=== PATIENT | male | born 1940 | race African-American/Black ===

== ENCOUNTER 2016-12-03 19:00 | Emergency (ER) | payer MEDICARE ==
--- NOTE | 2016-12-03 20:47 | Cat Scan Report ---
FINAL REPORT EXAM: CT HEAD/BRAIN WO CON HISTORY: neuro deficits \T\lt; 6hrs or sx present upon awakening TECHNIQUE: Noncontrast serial axial images from skull base to vertex PRIORS: None. FINDINGS: There is moderate atrophy. There is no mass effect or midline shift. There are no abnormal intra or extra-axial fluid collections. Lateral ventricles are prominent, but this may be related to atrophy. Basilar cisterns are patent. No acute intracranial hemorrhage is identified. Areas of relative hypodensity are seen in the white matter of the cerebral hemispheres. Atherosclerotic changes are noted. There is mucosal thickening and the left maxillary sinus and scattered ethmoidal air cells. Mastoid air cells are well aerated. No acute osseous abnormality is identified. IMPRESSION: 1. No abnormal mass or acute intracranial hemorrhage is identified. 2. Areas of relative hypodensity are seen in the white matter of the cerebral hemispheres. This is a nonspecific finding. It may be related to chronic ischemic change from small vessel disease. 3. If there is concern for acute infarct, the patient can be further assessed with MRI with diffusion-weighted imaging.
[2016-12-03 21:27] LABS: Basophils % (Auto) 0.8 % (0.0-1.8); Eosinophils % (Auto) 6.4 % (0.0-4.3); Hematocrit 35.4 % (35.5-45.6); Mean Corpuscular HGB Conc 34 % (32-34); Mean Corpuscular Hemoglobin 30 pg (28-32); Mean Corpuscular Volume 88 fl (84-94); Platelet Count 215 K/mm3 (140-440); Red Blood Count 4.01 M/mm3 (3.65-5.03); Red Cell Distribution Width 14.5 % (13.2-15.2); White Blood Count 7.3 K/mm3 (4.5-11.0)
[2016-12-03 21:37] LABS: INR 0.96 (0.87-1.13); Partial Thromboplastin Time 36.4 Sec. (24.2-36.6)
--- NOTE | 2016-12-03 21:44 | Emergency Department Report ---
ED Neuro Deficit HPI - General Chief Complaint: Neuro Symptoms/Deficit Stated Complaint: FACIAL DROOP/POSS CVA Time Seen by Provider: 12/03/16 20:18 Source: patient, family Mode of arrival: Wheelchair Limitations: No Limitations - History of Present Illness Initial Comments: 76-year-old male presents to the emergency Department with family complaining of left-sided facial droop. Symptoms began yesterday and have progressively gotten worse. Patient states he is having difficulty closing his left eye. He denies pain. He denies numbness or weakness in his extremities. There are no other complaints. -: Gradual, days(s) (1) Location: left face Presenting Symptoms: Present: Facial Droop/Numbness History of same: No Place: home Severity: moderate Quality: weak Improves With: none Worsens With: none On Anticoagulants: No Context: gradual onset Associated Symptoms: denies other symptoms - Related Data Home Medications: Previous Rx's Medication Instructions Recorded Last Taken Type predniSONE [Deltasone] 3 tab PO QDAY #15 tablet 12/03/16 Unknown Rx Allergies/Adverse Reactions: Allergies Allergy/AdvReac Type Severity Reaction Status Date / Time No Known Allergies Allergy Unverified 12/03/16 19:24 ED Review of Systems ROS: Stated complaint: FACIAL DROOP/POSS CVA Other details as noted in HPI Comment: All other systems reviewed and negative Neurological: as per HPI, other (left facial droop) ED Past Medical Hx - Past Medical History Previous Medical History?: Yes Hx Hypertension: Yes Hx Renal Disease: Yes (CKD, not on dialysis) Additional medical history: Hyperkalemia, vitamin D deficiency - Surgical History Past Surgical History?: No - Family History Family history: no significant - Social History Smoking Status: Never Smoker Substance Use Type: Alcohol, Prescribed - Medications Home Medications: Home Medications Medication Instructions Recorded Confirmed Last Taken Type predniSONE [Deltasone] 3 tab PO QDAY #15 tablet 12/03/16 Unknown Rx ED Neuro Physical Exam - General Limitations: No Limitations General appearance: alert, in no apparent distress Suspected Stroke: No - Head Head exam: Present: atraumatic, normocephalic - Eye Eye exam: Present: PERRL, EOMI, conjunctival injection (left), other (Patient unable to close left eyelid) - ENT ENT exam: Present: normal exam, normal orophraynx, mucous membranes moist - Neck Neck exam: Present: normal inspection, full ROM. Absent: tenderness - Respiratory Respiratory exam: Present: normal lung sounds bilaterally. Absent: respiratory distress - Cardiovascular Cardiovascular Exam: Present: regular rate, normal rhythm, normal heart sounds - GI/Abdominal GI/Abdominal exam: Present: soft, normal bowel sounds. Absent: distended, tenderness - Extremities Exam Extremities exam: Present: normal inspection, full ROM. Absent: tenderness - Back Exam Back exam: Present: normal inspection, full ROM. Absent: tenderness - Neurological Exam Neurological exam: Present: alert, oriented X3, other (left facial droop) - NIHSS Assessment Interval: Baseline 1a. Level of Consciousness: alert 1b. LOC Questions: answers correctly 1c. LOC Commands: performs tasks correctly 2. Best Gaze: normal 3. Visual: no visual loss 4. Facial Palsy: partial paralysis 5b. Motor Arm Right: no drift 5a. Motor Arm Left: no drift 6a. Motor Leg Left: no drift 6b. Motor Leg Right: no drift 7. Limb Ataxia: absent 8. Sensory: normal 9. Best Language: no aphasia 10. Dysarthria: normal 11. Extinction/Inattention: no abnormality Total Score: 2 Stroke Severity: Minor Stroke - Skin Skin exam: Present: warm, dry, intact ED Course Vital Signs 12/03/16 12/03/16 12/03/16 19:11 19:20 19:21 Temperature 98.3 F Pulse Rate 65 67 Respiratory 19 18 Rate Blood Pressure 175/79 185/83 O2 Sat by Pulse 99 98 99 Oximetry 12/03/16 12/03/16 12/03/16 19:30 19:40 19:50 Temperature Pulse Rate 65 60 62 Respiratory 24 19 21 Rate Blood Pressure 179/74 179/74 171/82 O2 Sat by Pulse 99 98 98 Oximetry 12/03/16 12/03/16 12/03/16 19:52 20:00 20:05 Temperature Pulse Rate 76 56 L Respiratory 20 18 Rate Blood Pressure 179/76 O2 Sat by Pulse 98 99 Oximetry 12/03/16 12/03/16 12/03/16 20:12 20:20 20:30 Temperature Pulse Rate 71 58 L 59 L Respiratory 20 21 10 L Rate Blood Pressure 179/76 197/83 193/86 O2 Sat by Pulse 97 100 97 Oximetry 12/03/16 12/03/16 12/03/16 20:40 20:50 21:00 Temperature Pulse Rate 60 60 58 L Respiratory 16 17 18 Rate Blood Pressure 193/86 171/82 182/68 O2 Sat by Pulse 98 99 96 Oximetry 12/03/16 12/03/16 12/03/16 21:10 21:20 21:30 Temperature Pulse Rate 60 57 L 58 L Respiratory 15 15 20 Rate Blood Pressure 182/68 200/77 194/84 O2 Sat by Pulse 97 98 97 Oximetry 12/03/16 12/03/16 21:40 21:50 Temperature Pulse Rate 57 L 55 L Respiratory 15 25 H Rate Blood Pressure 194/84 174/62 O2 Sat by Pulse 98 100 Oximetry - Lab Data Result diagrams: 12/03/16 19:54 12/03/16 19:54 Lab Results 12/03/16 12/03/16 12/03/16 Range/Units 19:54 19:54 19:54 WBC 7.3 (4.5-11.0) K/mm3 RBC 4.01 (3.65-5.03) M/mm3 Hgb 12.0 (11.8-15.2) gm/dl Hct 35.4 L (35.5-45.6) % MCV 88 (84-94) fl MCH 30 (28-32) pg MCHC 34 (32-34) % RDW 14.5 (13.2-15.2) % Plt Count 215 (140-440) K/mm3 Lymph % (Auto) 22.7 (13.4-35.0) % [place] % (Auto) 9.4 H (0.0-7.3) % Eos % (Auto) 6.4 H (0.0-4.3) % Baso % (Auto) 0.8 (0.0-1.8) % Lymph # 1.7 (1.2-5.4) K/mm3 [place] # 0.7 (0.0-0.8) K/mm3 Eos # 0.5 H (0.0-0.4) K/mm3 Baso # 0.1 (0.0-0.1) K/mm3 Seg Neutrophils % 60.7 (40.0-70.0) % Seg Neutrophils # 4.4 (1.8-7.7) K/mm3 PT 12.7 (12.2-14.9) Sec. INR 0.96 (0.87-1.13) APTT 36.4 (24.2-36.6) Sec. Thrombin Time (15.1-19.6) Sec. Sodium 140 (137-145) mmol/L Potassium 5.1 H (3.6-5.0) mmol/L Chloride 102.2 (98-107) mmol/L Carbon Dioxide 25 (22-30) mmol/L Anion Gap 18 mmol/L BUN 33 H (9-20) mg/dL Creatinine 1.7 H (0.8-1.5) mg/dL Estimated GFR 39 ml/min BUN/Creatinine Ratio 19.41 % Glucose 110 H (75-100) mg/dL Calcium 9.2 (8.4-10.2) mg/dL Troponin T < 0.010 (0.00-0.029) ng/mL 12/03/16 Range/Units 19:54 WBC (4.5-11.0) K/mm3 RBC (3.65-5.03) M/mm3 Hgb (11.8-15.2) gm/dl Hct (35.5-45.6) % MCV (84-94) fl MCH (28-32) pg MCHC (32-34) % RDW (13.2-15.2) % Plt Count (140-440) K/mm3 Lymph % (Auto) (13.4-35.0) % [place] % (Auto) (0.0-7.3) % Eos % (Auto) (0.0-4.3) % Baso % (Auto) (0.0-1.8) % Lymph # (1.2-5.4) K/mm3 [place] # (0.0-0.8) K/mm3 Eos # (0.0-0.4) K/mm3 Baso # (0.0-0.1) K/mm3 Seg Neutrophils % (40.0-70.0) % Seg Neutrophils # (1.8-7.7) K/mm3 PT (12.2-14.9) Sec. INR (0.87-1.13) APTT (24.2-36.6) Sec. Thrombin Time 15.5 (15.1-19.6) Sec. Sodium (137-145) mmol/L Potassium (3.6-5.0) mmol/L Chloride (98-107) mmol/L Carbon Dioxide (22-30) mmol/L Anion Gap mmol/L BUN (9-20) mg/dL Creatinine (0.8-1.5) mg/dL Estimated GFR ml/min BUN/Creatinine Ratio % Glucose (75-100) mg/dL Calcium (8.4-10.2) mg/dL Troponin T (0.00-0.029) ng/mL - EKG Data -: EKG Interpreted by Me EKG shows normal: sinus rhythm, axis, intervals, QRS complexes Rate: normal When compared to previous EKG there are: previous EKG unavailable Interpretation: nonspecific ST-T wave sangita - Radiology Data Radiology results: report reviewed, image reviewed CT of the head shows no acute intracranial abnormality. There are areas of relative hypodensity in the white matter, which is nonspecific. This may be related to chronic small vessel ischemic changes. - Medical Decision Making Lab and imaging results reviewed and discussed with the patient and family. Patient will be discharged home at this time on oral steroids to follow up with his primary care physician. Patient is also instructed to obtain over-the- counter eye lubrication drops to prevent drying of his left cornea. Patient and family expressed understanding of these instructions. - Differential Diagnosis Rosales's palsy, stroke - Thrombolytic Inclusion/Exclusion Thrombolytic Exclusion Criteria: Symptom Onset > 3 Hours Critical care attestation.: If time is entered above; I have spent that time in minutes in the direct care of this critically ill patient, excluding procedure time. ED Disposition Clinical Impression: Rosales's palsy Disposition: DC-01 TO HOME OR SELFCARE Is pt being admited?: No Condition: Stable Instructions: Rosales Palsy (ED) Prescriptions: predniSONE [Deltasone] 3 tab PO QDAY #15 tablet Referrals: RUBEN GUZMÁN MD [Primary Care Provider] - 3-5 Days Time of Disposition: 22:02
[2016-12-03 21:46] LABS: Anion Gap 18 mmol/L; BUN/Creatinine Ratio 19.41; Blood Urea Nitrogen 33 mg/dL (9-20); Calcium 9.2 mg/dL (8.4-10.2); Carbon Dioxide 25 mmol/L (22-30); Chloride 102.2 mmol/L (98-107); Glucose 110 mg/dL (75-100); Potassium 5.1 mmol/L (3.6-5.0); Sodium 140 mmol/L (137-145)
[2016-12-03 22:00] VITALS: BP 174/62
== END 2016-12-03 22:28 | disposition home or self-care (01) ==
LOC: ED 19:00
DX: G51.0 Bell's palsy (principal); I12.9 Hypertensive chronic kidney disease with stage 1 through stage 4 chronic kidney disease, or unspecified chronic kidney disease; N18.9 Chronic kidney disease, unspecified
CPT/HCPCS: 36415; 70450; 80048; 84484; 85025; 85610; 85670; 85730; 93005; 93010; 99284

== ENCOUNTER 2018-11-08 22:32 | Inpatient (IN) | payer MEDICARE ==
[2018-11-08] MEDS ORDERED: KEPPRA 1,000 MG/NS 0.75% 100ML 1,000 MG/100 ML BAG IV ONE (22:46)
[2018-11-08] MEDS ORDERED: NACL 0.9% 1000 ML 1,000 ML ONE (22:53)
--- NOTE | 2018-11-08 22:53 | Emergency Department Report ---
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 Left Sided old stroke. Deviation of eyes to the right, load with Keppra 1000 mg IV x 1, and CTA H/N Patient has high grade stenosis of left MCA. Hewill need, MRI, and asprin and plavix. If he does not get better with the right sided weakness, per wingspan trial he may need furthering intervention, beucause the previous stroke was in the plastic dolls mold filler distribution., Patient was initially not given CTA H/N b/c of high bun/creatinine, but override was commenced. Differential Diagnosis: 1. Cardioembolic stroke 2. Small vessel disease/lacune 3. Thromboembolic, [id number] mechanism 4. Hypercoagulable state-related infarct 5. Transient ischemic attack 6. Thrombotic mechanism, large artery disease Comments: [employer] contacted: [phone] [employer] at bedside: [phone] NIHSS assessment time: same Recommendations: inpatient neurology consultation Inpatient stroke evaluation as per Neurology/ Internal Medicine Discussed with ED MD CC History of Present Illness Patient is a 69 year old male last known well with hemorrhagic stroke, with diabetes cva, htn, and filipino. No bleeding on current ct. He had seizure like activity previously. Diagnostic: CT head withotu Exam: NIHSS score: LOC - alertness - 3 LOC - Questions - 2 LOC- COmmands - 2 Horizontal Gaze - 2 - right side Visual Daley - 0 Facial Droop - 0 Upper Extremities 4,4- right upper Lower Extremities 4,4- - right lower Dysartrhia - 2 Aphasia - 3 Ataxia - Sensory - 0 Extinction -0 NIHSS is 30 Medical Decision Making: - Extensive number of diagnosis or management options are considered above. - Extensive amount of complex data reviewed. - High risk of complication and/or morbidity or mortality are associated with d ifferential diagnostic considerations above. - There may be Uncertain outcome and increased probability of prolonged functional impairment or high probability of severe prolonged functional impairment associated with some of these differential diagnosis. Medical Data Reviewed: 1.Data reviewed include clinical labs, radiology, Medical Tests; 2.Tests results discussed w/performing or interpreting physician; 3.Obtaining/reviewing old medical records; 4.Obtaining case history from another source; 5.Independent review of image, tracing or specimen. - Related Data Home Medications: Previous Rx's Medication Instructions Recorded Last Taken Type predniSONE [Deltasone] 3 tab PO QDAY #15 tablet 12/03/16 Unknown Rx Allergies/Adverse Reactions: Allergies Allergy/AdvReac Type Severity Reaction Status Date / Time No Known Allergies Allergy Unverified 12/03/16 19:24 ED Review of Systems ROS: Stated complaint: POSSIBLE CVA Other details as noted in HPI ED Past Medical Hx - Past Medical History Hx Hypertension: Yes Hx Renal Disease: Yes (CKD, not on dialysis) Additional medical history: Hyperkalemia, vitamin D deficiency - Social History Smoking Status: Never Smoker Substance Use Type: None - Medications Home Medications: Home Medications Medication Instructions Recorded Confirmed Last Taken Type predniSONE [Deltasone] 3 tab PO QDAY #15 tablet 12/03/16 Unknown Rx ED Neuro Physical Exam - General Limitations: Other ED Course Vital Signs 11/08/18 11/08/18 11/08/18 22:44 22:45 22:57 Temperature 98 F Pulse Rate 97 H 93 H Respiratory 22 20 Rate Blood Pressure 132/70 124/63 132/70 O2 Sat by Pulse 100 100 Oximetry 11/08/18 11/08/18 11/08/18 23:00 23:15 23:30 Temperature Pulse Rate 95 H 90 85 Respiratory 22 22 20 Rate Blood Pressure 133/63 112/56 115/55 O2 Sat by Pulse 100 94 Oximetry 11/08/18 11/08/18 11/09/18 23:35 23:45 00:00 Temperature Pulse Rate 84 81 84 Respiratory 18 18 15 Rate Blood Pressure 115/55 121/61 122/67 O2 Sat by Pulse Oximetry 11/09/18 11/09/18 11/09/18 00:15 00:30 00:45 Temperature Pulse Rate 79 74 73 Respiratory 18 18 17 Rate Blood Pressure 128/62 117/54 121/56 O2 Sat by Pulse 98 97 98 Oximetry 11/09/18 11/09/18 11/09/18 01:00 01:15 01:30 Temperature Pulse Rate 73 68 74 Respiratory 16 16 19 Rate Blood Pressure 128/63 125/55 144/72 O2 Sat by Pulse 98 100 99 Oximetry 11/09/18 11/09/18 11/09/18 01:45 02:00 02:15 Temperature Pulse Rate 71 71 71 Respiratory 16 18 16 Rate Blood Pressure 125/59 121/61 124/59 O2 Sat by Pulse 98 98 99 Oximetry 11/09/18 11/09/18 11/09/18 02:30 02:45 03:00 Temperature Pulse Rate 72 73 73 Respiratory 15 13 14 Rate Blood Pressure 130/65 140/72 145/70 O2 Sat by Pulse 99 99 99 Oximetry 11/09/18 11/09/18 11/09/18 03:15 03:30 04:25 Temperature Pulse Rate 73 73 79 Respiratory 16 18 17 Rate Blood Pressure 149/70 146/74 O2 Sat by Pulse 98 99 96 Oximetry - Lab Data Result diagrams: 11/08/18 22:53 11/08/18 22:53 Lab Results 11/08/18 11/08/18 11/08/18 Range/Units 22:53 22:53 22:53 WBC 14.1 H (4.5-11.0) K/mm3 RBC 4.21 (3.65-5.03) M/mm3 Hgb 12.5 (11.8-15.2) gm/dl Hct 36.5 (35.5-45.6) % MCV 87 (84-94) fl MCH 30 (28-32) pg MCHC 34 (32-34) % RDW 15.0 (13.2-15.2) % Plt Count 231 (140-440) K/mm3 Lymph % (Auto) 5.6 L (13.4-35.0) % [place] % (Auto) 5.7 (0.0-7.3) % Eos % (Auto) 0.9 (0.0-4.3) % Baso % (Auto) 0.7 (0.0-1.8) % Lymph # 0.8 L (1.2-5.4) K/mm3 [place] # 0.8 (0.0-0.8) K/mm3 Eos # 0.1 (0.0-0.4) K/mm3 Baso # 0.1 (0.0-0.1) K/mm3 Seg Neutrophils % 87.1 H (40.0-70.0) % Seg Neutrophils # 12.3 H (1.8-7.7) K/mm3 PT 13.5 (12.2-14.9) Sec. INR 0.76 L (0.87-1.13) APTT 29.0 (24.2-36.6) Sec. Thrombin Time (15.1-19.6) Sec. Sodium 135 L (137-145) mmol/L Potassium 4.5 (3.6-5.0) mmol/L Chloride 95.7 L (98-107) mmol/L Carbon Dioxide 19 L (22-30) mmol/L Anion Gap 25 mmol/L BUN 29 H (9-20) mg/dL Creatinine 2.4 H (0.8-1.5) mg/dL Estimated GFR 26 ml/min BUN/Creatinine Ratio 12 % Glucose 202 H (75-100) mg/dL Calcium 9.1 (8.4-10.2) mg/dL Troponin T 0.015 (0.00-0.029) ng/mL 11/08/18 Range/Units 22:53 WBC (4.5-11.0) K/mm3 RBC (3.65-5.03) M/mm3 Hgb (11.8-15.2) gm/dl Hct (35.5-45.6) % MCV (84-94) fl MCH (28-32) pg MCHC (32-34) % RDW (13.2-15.2) % Plt Count (140-440) K/mm3 Lymph % (Auto) (13.4-35.0) % [place] % (Auto) (0.0-7.3) % Eos % (Auto) (0.0-4.3) % Baso % (Auto) (0.0-1.8) % Lymph # (1.2-5.4) K/mm3 [place] # (0.0-0.8) K/mm3 Eos # (0.0-0.4) K/mm3 Baso # (0.0-0.1) K/mm3 Seg Neutrophils % (40.0-70.0) % Seg Neutrophils # (1.8-7.7) K/mm3 PT (12.2-14.9) Sec. INR (0.87-1.13) APTT (24.2-36.6) Sec. Thrombin Time 15.9 (15.1-19.6) Sec. Sodium (137-145) mmol/L Potassium (3.6-5.0) mmol/L Chloride (98-107) mmol/L Carbon Dioxide (22-30) mmol/L Anion Gap mmol/L BUN (9-20) mg/dL Creatinine (0.8-1.5) mg/dL Estimated GFR ml/min BUN/Creatinine Ratio % Glucose (75-100) mg/dL Calcium (8.4-10.2) mg/dL Troponin T (0.00-0.029) ng/mL Critical care attestation.: If time is entered above; I have spent that time in minutes in the direct care of this critically ill patient, excluding procedure time. ED Disposition Clinical Impression: CVA (cerebral vascular accident), New onset seizure Disposition: OP ADMIT IP TO THIS HOSP Condition: Stable
[2018-11-08] MEDS ORDERED: NACL 0.9% 1000 ML 1,000 ML IV ONE (22:55)
--- NOTE | 2018-11-08 23:01 | Cat Scan Report ---
PROCEDURE: CT HEAD/BRAIN WO CON TECHNIQUE: Computerized tomography of the head was performed without contrast material. CT DOSE LENGTH PRODUCT: 1137.3 mGycm HISTORY: neuro deficits <6hrs or sx present upon awakening COMPARISONS: 12/03/2016 . FINDINGS: Skull and scalp: Normal . Paranasal sinuses: There is complete opacification of left maxillary sinus and partial opacification of left ethmoid air cells. . Ventricles and subarachnoid spaces: Prominent consistent with cerebral atrophy. . Cerebrum: A large irregular area of encephalomalacia involving left occipital and temporal lobes is n oted most likely secondary to an old infarct or hemorrhage. An acute intra-axial or extra-axial hemor rhage or mass effect is not identified.. Cerebellum and brainstem: No evidence of hemorrhage, acute infarction or mass . Vasculature: Normal . Other: None . ASPECTS: 10 IMPRESSION: No acute intracranial abnormality. Chronic left ethmoid and maxillary sinusitis This document is electronically signed by Matt Cox MD., Nov 08 2018 10:59:05 PM ET
[2018-11-08 23:02] LABS: Basophils # (Auto) 0.1 K/mm3 (0.0-0.1); Basophils % (Auto) 0.7 % (0.0-1.8); Eosinophils # (Auto) 0.1 K/mm3 (0.0-0.4); Eosinophils % (Auto) 0.9 % (0.0-4.3); Hematocrit 36.5 % (35.5-45.6); Hemoglobin 12.5 gm/dl (11.8-15.2); Lymphocytes # (Auto) 0.8 K/mm3 (1.2-5.4); Lymphocytes % (Auto) 5.6 % (13.4-35.0); Mean Corpuscular HGB Conc 34 % (32-34); Mean Corpuscular Volume 87 fl (84-94); Monocytes # (Auto) 0.8 K/mm3 (0.0-0.8); Monocytes % (Auto) 5.7 % (0.0-7.3); Platelet Count 231 K/mm3 (140-440); Red Blood Count 4.21 M/mm3 (3.65-5.03)
--- NOTE | 2018-11-08 23:11 | Emergency Department Report ---
ED Neuro Deficit HPI - General Chief Complaint: Neuro Symptoms/Deficit Stated Complaint: POSSIBLE CVA Time Seen by Provider: 11/08/18 22:37 Source: EMS Mode of arrival: Stretcher Limitations: Other - History of Present Illness Initial Comments: Patient is 77 years old male with history of hemorrhagic stroke in June with left side residual. Patient brought to the emergency room via EMS after patient was found to have a seizure-like activity per EMS report. Upon arrival to the ER patient is not communicating with right eye deviation. No seizure activity observed in the ER. Stroke protocol initiated. CT brain is negative for acute finding. Patient immediately evaluated by telemetry neurology Dr. Miguel, who stated that patient is not a TPA candidate and advised to give Keppra 1 g and do a CTA neck and CTA brain. -: This evening Location: other History of same: No Place: home - Related Data Home Medications: Previous Rx's Medication Instructions Recorded Last Taken Type predniSONE [Deltasone] 3 tab PO QDAY #15 tablet 12/03/16 Unknown Rx Allergies/Adverse Reactions: Allergies Allergy/AdvReac Type Severity Reaction Status Date / Time No Known Allergies Allergy Unverified 12/03/16 19:24 ED Review of Systems ROS: Stated complaint: POSSIBLE CVA Other details as noted in HPI Comment: Unobtainable due to pts medical conditions ED Past Medical Hx - Past Medical History Previous Medical History?: Yes Hx Hypertension: Yes Hx CVA: Yes (hemmorhagic stroke in June 2018) Hx Diabetes: Yes Hx Renal Disease: Yes (CKD stage 4, not on dialysis) Additional medical history: Hyperkalemia, vitamin D deficiency - Social History Smoking Status: Unknown if ever smoked Substance Use Type: Prescribed - Medications Home Medications: Home Medications Medication Instructions Recorded Confirmed Last Taken Type predniSONE [Deltasone] 3 tab PO QDAY #15 tablet 12/03/16 Unknown Rx ED Neuro Physical Exam - General Limitations: Other General appearance: alert, in no apparent distress Suspected Stroke: Yes - Head Head exam: Present: atraumatic, normocephalic, normal inspection - Eye Eye exam: Present: normal appearance - ENT ENT exam: Present: normal exam, normal orophraynx, mucous membranes moist - Neck Neck exam: Present: normal inspection - Respiratory Respiratory exam: Present: normal lung sounds bilaterally - Cardiovascular Cardiovascular Exam: Present: regular rate, normal rhythm, normal heart sounds - GI/Abdominal GI/Abdominal exam: Present: soft, normal bowel sounds. Absent: distended, tenderness, guarding, rebound, rigid - Neurological Exam Neurological exam: Present: altered - NIHSS Assessment Interval: Baseline 1a. Level of Consciousness: coma/unresponsive 1b. LOC Questions: aphasic 1c. LOC Commands: performs no tasks correctly 2. Best Gaze: forced deviation 3. Visual: no visual loss 4. Facial Palsy: normal symmetrical movement 5b. Motor Arm Right: no movement 5a. Motor Arm Left: no movement 6a. Motor Leg Left: no movement 6b. Motor Leg Right: no movement 7. Limb Ataxia: absent 8. Sensory: normal 9. Best Language: mute/global aphasia 10. Dysarthria: mute/anarrthric 11. Extinction/Inattention: no abnormality Total Score: 30 Stroke Severity: Severe Stroke - Skin Skin exam: Present: warm, intact, normal color ED Course Vital Signs 11/08/18 11/08/18 11/08/18 22:44 22:45 22:57 Temperature 98 F Pulse Rate 97 H 93 H Respiratory 22 20 Rate Blood Pressure 132/70 124/63 132/70 O2 Sat by Pulse 100 100 Oximetry 11/08/18 11/08/18 11/08/18 23:00 23:15 23:30 Temperature Pulse Rate 95 H 90 85 Respiratory 22 22 20 Rate Blood Pressure 133/63 112/56 115/55 O2 Sat by Pulse 100 94 Oximetry - Lab Data Result diagrams: 11/08/18 22:53 11/08/18 22:53 Lab Results 11/08/18 11/08/18 11/08/18 Range/Units 22:53 22:53 22:53 WBC 14.1 H (4.5-11.0) K/mm3 RBC 4.21 (3.65-5.03) M/mm3 Hgb 12.5 (11.8-15.2) gm/dl Hct 36.5 (35.5-45.6) % MCV 87 (84-94) fl MCH 30 (28-32) pg MCHC 34 (32-34) % RDW 15.0 (13.2-15.2) % Plt Count 231 (140-440) K/mm3 Lymph % (Auto) 5.6 L (13.4-35.0) % [place] % (Auto) 5.7 (0.0-7.3) % Eos % (Auto) 0.9 (0.0-4.3) % Baso % (Auto) 0.7 (0.0-1.8) % Lymph # 0.8 L (1.2-5.4) K/mm3 [place] # 0.8 (0.0-0.8) K/mm3 Eos # 0.1 (0.0-0.4) K/mm3 Baso # 0.1 (0.0-0.1) K/mm3 Seg Neutrophils % 87.1 H (40.0-70.0) % Seg Neutrophils # 12.3 H (1.8-7.7) K/mm3 PT 13.5 (12.2-14.9) Sec. INR 0.76 L (0.87-1.13) APTT 29.0 (24.2-36.6) Sec. Thrombin Time (15.1-19.6) Sec. Sodium 135 L (137-145) mmol/L Potassium 4.5 (3.6-5.0) mmol/L Chloride 95.7 L (98-107) mmol/L Carbon Dioxide 19 L (22-30) mmol/L Anion Gap 25 mmol/L BUN 29 H (9-20) mg/dL Creatinine 2.4 H (0.8-1.5) mg/dL Estimated GFR 26 ml/min BUN/Creatinine Ratio 12 % Glucose 202 H (75-100) mg/dL Calcium 9.1 (8.4-10.2) mg/dL Troponin T 0.015 (0.00-0.029) ng/mL 11/08/18 Range/Units 22:53 WBC (4.5-11.0) K/mm3 RBC (3.65-5.03) M/mm3 Hgb (11.8-15.2) gm/dl Hct (35.5-45.6) % MCV (84-94) fl MCH (28-32) pg MCHC (32-34) % RDW (13.2-15.2) % Plt Count (140-440) K/mm3 Lymph % (Auto) (13.4-35.0) % [place] % (Auto) (0.0-7.3) % Eos % (Auto) (0.0-4.3) % Baso % (Auto) (0.0-1.8) % Lymph # (1.2-5.4) K/mm3 [place] # (0.0-0.8) K/mm3 Eos # (0.0-0.4) K/mm3 Baso # (0.0-0.1) K/mm3 Seg Neutrophils % (40.0-70.0) % Seg Neutrophils # (1.8-7.7) K/mm3 PT (12.2-14.9) Sec. INR (0.87-1.13) APTT (24.2-36.6) Sec. Thrombin Time 15.9 (15.1-19.6) Sec. Sodium (137-145) mmol/L Potassium (3.6-5.0) mmol/L Chloride (98-107) mmol/L Carbon Dioxide (22-30) mmol/L Anion Gap mmol/L BUN (9-20) mg/dL Creatinine (0.8-1.5) mg/dL Estimated GFR ml/min BUN/Creatinine Ratio % Glucose (75-100) mg/dL Calcium (8.4-10.2) mg/dL Troponin T (0.00-0.029) ng/mL - EKG Data -: EKG Interpreted by In EKG shows normal: sinus rhythm Rate: normal Interpretation: no acute changes - Radiology Data Radiology results: report reviewed Referring Physician: SIMONA YEBOAH Patient Name: HAN ELMORE Date of : 1940 Sex: Male Report Date: 2018-11-08 Report Status: [place] [address] Cat Scan Report Signed Patient: HAN ELMORE MR#: [id number] : 1940 Acct:[id number] Age/Sex: 77 / M ADM Date: 11/08/18 Loc: ED Attending Dr: Ordering Physician: SIMONA YEBOAH Date of Service: 11/08/18 Procedure(s): CT head/brain wo con Accession Number(s): [id number] cc: SIMONA YEBOAH PROCEDURE: CT HEAD/BRAIN WO CON TECHNIQUE: Computerized tomography of the head was performed without contrast material. CT DOSE LENGTH PRODUCT: 1137.3 mGycm HISTORY: neuro deficits <6hrs or sx present upon awakening COMPARISONS: 12/03/2016 . FINDINGS: Skull and scalp: Normal . Paranasal sinuses: There is complete opacification of left maxillary sinus and partial opacification of left ethmoid air cells. . Ventricles and subarachnoid spaces: Prominent consistent with cerebral atrophy. . Cerebrum: A large irregular area of encephalomalacia involving left occipital and temporal lobes is noted most likely secondary to an old infarct or hemorrhage. An acute intra- axial or extra-axial hemorrhage or mass effect is not identified.. Cerebellum and brainstem: No evidence of hemorrhage, acute infarction or mass . Vasculature: Normal . Other: None . ASPECTS: 10 IMPRESSION: No acute intracranial abnormality. Chronic left ethmoid and maxillary sinusitis This document is electronically signed by Bria Cox MD., Nov 08 2018 10:59:05 PM ET Transcribed By: [facility] Dictated By: BRIA COX Electronically Authenticated By: BRIA COX Signed Date/Time: 11/08/182300 DD/ 42 TD/TT: 11/08/182242 - Medical Decision Making Patient is 77 years old male with history of hemorrhagic stroke in June with left side residual. Patient brought to the emergency room via EMS after patient was found to have a seizure-like activity per EMS report. Upon arrival to the ER patient is not communicating with right eye deviation. No seizure activity observed in the ER. Stroke protocol initiated. CT brain is negative for acute finding. Patient immediately evaluated by telemetry neurology Dr. Miguel, who stated that patient is not a TPA candidate and advised to give Keppra 1 g and do a CTA neck and CTA brain. I discussed the patient is Dr. Silverio, she agreed to admit to medical service for further management. Critical Care Time: Yes Critical care time in (mins) excluding proc time.: 30 Critical care attestation.: If time is entered above; I have spent that time in minutes in the direct care of this critically ill patient, excluding procedure time. ED Disposition Clinical Impression: CVA (cerebral vascular accident), New onset seizure Disposition: OP ADMIT IP TO THIS HOSP Is pt being admited?: Yes Condition: Stable Referrals: EUGENIE CHENG MD [Referring] - 3-5 Days
[2018-11-08 23:18] LABS: Calcium 9.1 mg/dL (8.4-10.2)
[2018-11-08 23:24] LABS: INR 0.76 (0.87-1.13)
[2018-11-09] MEDS ORDERED: SODIUM CHLORIDE FLUSH SYRINGE 10 ML IV PRN (01:12)
[2018-11-09] MEDS ORDERED: D50W (25GM) Syringe IV PRN (01:19)
--- NOTE | 2018-11-09 02:40 | History and Physical Report ---
History of Present Illness Date of examination: 11/09/18 Chief complaint: Seizure activity per report History of present illness: Patient is a 77 year old male with history of hemorrhagic stroke in June 2018 with residual left sided weakness who was brought to the emergency room via EMS for seizure-like activity per EMS report. Upon arrival to the ED, patient is nonverbal and no seizure activity was observed. Stroke protocol was initiated in the ED. CT brain is negative for acute finding. Patient was immediately evaluated by telemetry neurology Dr. Miguel, who stated that patient is not a TPA candidate. He advised to give IV Keppra 1 g and admit patient for further stroke workup. No other history could be obtained from the patient. Past History Past Medical History: hypertension, renal failure, other (vitamin D deficiency) Past Surgical History: Other (could not be obtained due to altered mental statu s) Social history: other (no reported history of tobacco, alcohol or illicit drug use per chart) Family history: other (could not be obtained due to altered mental status) Medications and Allergies Allergies Allergy/AdvReac Type Severity Reaction Status Date / Time No Known Allergies Allergy Unverified 12/03/16 19:24 Home Medications Medication Instructions Recorded Confirmed Last Taken Type predniSONE [Deltasone] 3 tab PO QDAY #15 tablet 12/03/16 Unknown Rx Active Meds: Active Medications Atorvastatin Calcium (Lipitor) 40 mg PO QHS [facility] Dextrose (D50w (25gm) Syringe) 50 ml IV PRN PRN PRN Reason: Hypoglycemia Levetiracetam 500 mg/ Dextrose 105 mls @ 400 mls/hr IV Q12HR [facility] Sodium Chloride (Nacl 0.9% 1000 Ml) 1,000 mls @ 100 mls/hr IV DIRECT [facility] Insulin Glargine (Lantus) 10 units SUB-Q QHS [facility] Insulin Human Lispro (Humalog) 0 unit SUB-Q ACHS [facility]; Protocol Sodium Chloride (Sodium Chloride Flush Syringe 10 Ml) 10 ml IV PRN PRN PRN Reason: LINE FLUSH Review of Systems ROS unobtainable: due to mental status (AMS) Exam - Constitutional Vitals: Temp Pulse Resp BP Pulse Ox 98 F 71 16 124/59 99 11/08/18 22:57 11/09/18 02:15 11/09/18 02:15 11/09/18 02:15 11/09/18 02:15 General appearance: Present: no acute distress - EENT Eyes: Present: PERRL, EOM intact ENT: hearing intact, clear oral mucosa - Neck Neck: Present: supple - Respiratory Respiratory effort: normal Respiratory: bilateral: CTA - Cardiovascular Rhythm: regular Heart Sounds: Present: S1 & S2 - Extremities Extremities: pulses symmetrical Extremity abnormal: edema (in bilateral lower extremities) - Abdominal General gastrointestinal: Present: soft, non-tender, non-distended, normal bowel sounds Male genitourinary: Present: deferred - Integumentary Integumentary: Present: clear, warm, dry - Musculoskeletal Musculoskeletal: left sided weakness - Psychiatric Psychiatric: other (could not be assessed due to altered mental status) - Neurologic Neurologic: other (patient is nonverbal and unable to follow commands) Results - Labs CBC & Chem 7: 11/08/18 22:53 11/08/18 22:53 Labs: Laboratory Last Values WBC 14.1 K/mm3 (4.5-11.0) H 11/08/18 22:53 RBC 4.21 M/mm3 (3.65-5.03) 11/08/18 22:53 Hgb 12.5 gm/dl (11.8-15.2) 11/08/18 22:53 Hct 36.5 % (35.5-45.6) 11/08/18 22:53 MCV 87 fl (84-94) 11/08/18 22:53 MCH 30 pg (28-32) 11/08/18 22:53 MCHC 34 % (32-34) 11/08/18 22:53 RDW 15.0 % (13.2-15.2) 11/08/18 22:53 Plt Count 231 K/mm3 (140-440) 11/08/18 22:53 Lymph % (Auto) 5.6 % (13.4-35.0) L 11/08/18 22:53 [place] % (Auto) 5.7 % (0.0-7.3) 11/08/18 22:53 Eos % (Auto) 0.9 % (0.0-4.3) 11/08/18 22:53 Baso % (Auto) 0.7 % (0.0-1.8) 11/08/18 22:53 Lymph # 0.8 K/mm3 (1.2-5.4) L 11/08/18 22:53 [place] # 0.8 K/mm3 (0.0-0.8) 11/08/18 22:53 Eos # 0.1 K/mm3 (0.0-0.4) 11/08/18 22:53 Baso # 0.1 K/mm3 (0.0-0.1) 11/08/18 22:53 Seg Neutrophils % 87.1 % (40.0-70.0) H 11/08/18 22:53 Seg Neutrophils # 12.3 K/mm3 (1.8-7.7) H 11/08/18 22:53 PT 13.5 Sec. (12.2-14.9) 11/08/18 22:53 INR 0.76 (0.87-1.13) L 11/08/18 22:53 APTT 29.0 Sec. (24.2-36.6) 11/08/18 22:53 15.9 Sec. (15.1-19.6) 11/08/18 22:53 Sodium 135 mmol/L (137-145) L 11/08/18 22:53 Potassium 4.5 mmol/L (3.6-5.0) 11/08/18 22:53 Chloride 95.7 mmol/L (98-107) L 11/08/18 22:53 Carbon Dioxide 19 mmol/L (22-30) L 11/08/18 22:53 25 mmol/L 11/08/18 22:53 BUN 29 mg/dL (9-20) H 11/08/18 22:53 2.4 mg/dL (0.8-1.5) H 11/08/18 22:53 Estimated GFR 26 ml/min 11/08/18 22:53 12 % 11/08/18 22:53 Glucose 202 mg/dL (75-100) H 11/08/18 22:53 Calcium 9.1 mg/dL (8.4-10.2) 11/08/18 22:53 0.015 ng/mL (0.00-0.029) 11/08/18 22:53 Assessment and Plan Assessment and plan: New onset seizure -We'll continue IV Keppra and seizure precautions -Neurology consulted Possible stroke -On stroke protocol except aspirin due to history of hemorrhagic stroke -Stroke workup with MRI brain, carotid duplex and echocardiogram Acute metabolic encephalopathy -Probably postictal state -Head CT scan negative -Further evaluation with MRI brain pending Acute on CKD stage III -On IV fluid, will monitor creatinine level Metabolic acidosis -Likely secondary to the Renal failure -On IV fluid, will monitor bicarbonate level Hypertension -Stable DM2 with hyperglycemia -On SSI and Lantus Leukocytosis -Probably reactive, will monitor -Urinalysis pending DVT prophylaxis with SCD Disposition: For discharge when medically stable Time spent: 38 minutes
[2018-11-09] MEDS ORDERED: NACL 0.9% 1000 ML 1,000 ML IV ONE (03:23)
--- NOTE | 2018-11-09 03:28 | Emergency Department Report ---
Blank Doc - Documentation Documentation: It was brought to my attention about 2:40 AM by the neurologist Dr Miguel that he preferred the patient be transferred for stat MRA/MRI since head and neck since he did not receive a CT angiogramdue to elevated creatinine. The neurologist feels that patient is at risk for possible basilar occlusion due to alteration in mental status and the stat imaging is indicted. I reexamined patient. Patient apparently initially had a right gaze preference and presented with right-sided and left-sided weakness. Nurse also reports that patient was moving his left arm greater than his left leg. Upon my reexamination at 3 AM patient no longer has a gaze preference and is able to make eye contact. He is still unable to follow commands or answer questions even in his [place] language. He does have purposeful movement of his left arm and left leg with antigravity movement and localization of light touch. This is apparently an improvement compared to previous assessment. He does have persistent right-sided deficits and cant move of either the right arm or right leg against gravity. I suspect this is old based on his CT showing encephalomalacia left occipital and temporal lobe which would correspond to a right-sided deficit as opposed to the left sided residual deficit as initially documented. I discussed case with neurologist computer numerical control programmer at [facility] Dr. Molina who suggests that we proceed with CT angiogram despite the renal insufficiency. He recommends IV hydration since the brain is more important at this time. He also states they do not have any ICU beds available to accept the patient. I rediscussed this with Dr. Miguel and he also agrees with the plan to proceed with CT angiogram at 3:38 Am RN informs me that pt is now alert and knows his and name at 5:20 am case rediscussed withi Dr Miguel needs asa and plavix needs transfer for possible stent or intervention based on M1 stenosis reading keep head of bed flat at 5:30am case d/w neurologist DR Castillo at [facility] and they do not have neuro intervention. recommend us to speak to Vasquez at 5:35am Case d/w Dr Gonzalez possible recommeds pt be worked up here rec asa/plavix/and statin pt is now moving the right side. ddx sz with toddsk paralysis since neuro sx are improving If family states that pt is not improving back to baseline then transfer will be considered Case rediscussed with Dr Miguel with updated neuro exam (improved b/l movmement, speech, and mental status with residual right sided weakness) He is agreeable to have the pt admitted here. critical care time: 65 min
--- NOTE | 2018-11-09 04:50 | Cat Scan Report ---
PROCEDURE: CT ANGIO HEAD TECHNIQUE: Computerized tomographic angiography of the head was performed after the IV injection of iodinated nonionic contrast including image processing. The image data was postprocessed using 2-dim ensional multiplanar reformatted (MPR) and 3-dimensional (MIP and/or volume rendered) techniques. CT DOSE LENGTH PRODUCT: mGycm HISTORY: stroke symptoms COMPARISONS: CT brain 11/08/2018. FINDINGS: Cerebrum: No evidence of hemorrhage, acute ischemia or mass . Cerebellum: No evidence of hemorrhage, acute ischemia or mass . Subarachnoid spaces and ventricles: Normal . Intracranial vessels: Carotid siphon: Normal . Anterior cerebral: Normal . Middle cerebral: There is a high-grade stenosis of the left M1 segment. A thrombus is not seen. . Posterior cerebral: Normal . Vertebral arteries including basilar: Normal . Aneurysms: None . Dural sinuses: Normal. 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 No definite thrombus or occlusion identified.. This document is electronically signed by Bruce Pierre MD., Nov 09 2018 04:47:41 AM ET
--- NOTE | 2018-11-09 04:57 | Cat Scan Report ---
PROCEDURE: CT ANGIO NECK TECHNIQUE: A CT angiogram was performed following the intravenous injection of 1 cc of Omnipaque 350 . MIP sagittal and coronal reconstructions were obtained along with rotational reconstructions. HISTORY: stroke symptoms COMPARISONS: None FINDINGS: Both vertebral arteries are widely patent with the right being dominant. Both common carotid arteries widely patent with normal bifurcation into the internal and external carotid arteries. There is no e vidence of arterial stenosis or dissection. Lung apices are clear. The thyroid gland appears normal. There is no evidence of adenopathy. The airw ay appears normal. The parotid and submandibular glands appear normal. The sinuses reveal extensive m ucosal thickening and secretions in the left ethmoidal and left maxillary sinuses. Mucosal thickening seen in the right maxillary sinus. The skeletal structures do not show acute changes. IMPRESSION: No evidence of arterial stenosis or arterial dissection involving the vertebral or carotid arteries. 0-50% stenosis based on NASCET criteria. Sinusitis as described.. This document is electronically signed by Bruce Pierre MD., Nov 09 2018 04:56:11 AM ET
[2018-11-09 05:26] LABS: Bilirubin,Urine NEG (Negative); Blood,Urine MOD (Negative); Color,Urine Straw (Yellow); Hyaline Casts,Urine 1 /LPF; Urobilinogen,Urine < 2.0 mg/dL (<2.0)
[2018-11-09 05:34] LABS: WBC,Urine < 1.0 /HPF (0.0-6.0)
[2018-11-09] MEDS: NACL 0.9% 1000 ML 1,000 ML IV SCH ×2 (07:08→23:20)
[2018-11-09] MEDS: HumaLOG SUB-Q SCH ×4 (09:04→22:01)
--- NOTE | 2018-11-09 11:27 | Progress Note ---
Assessment and Plan Assessment and plan: New onset seizure -We'll continue IV Keppra and seizure precautions -Neurology consulted Possible stroke; not a candidate for TPA -On stroke protocol except aspirin due to history of hemorrhagic stroke -Stroke workup with MRI brain, carotid duplex and echocardiogram Acute metabolic encephalopathy -Probably postictal state -Head CT scan negative -Further evaluation with MRI brain pending Acute on CKD stage III -On IV fluid, will monitor creatinine level Metabolic acidosis -Likely secondary to the Renal failure -On IV fluid, will monitor bicarbonate level Hypertension -Stable DM2 with hyperglycemia -On SSI and Lantus Leukocytosis -Probably reactive, will monitor -Urinalysis pending DVT prophylaxis with SCD Disposition: For discharge when medically stable Time spent: 38 minutes History Interval history: Patient seen and examined medical records reviewed no new events reported by the nursing Admitted with seizures and possible CVA Neurology Workup in progress Hospitalist Physical - Constitutional Vitals: Temp Pulse Resp BP Pulse Ox 98 F 73 17 160/78 97 11/08/18 22:57 11/09/18 07:21 11/09/18 07:21 11/09/18 07:21 11/09/18 07:21 General appearance: Present: no acute distress, well-nourished - EENT Eyes: Present: PERRL, EOM intact - Neck Neck: Present: supple, normal ROM - Respiratory Respiratory effort: normal Respiratory: bilateral: diminished, rales, negative: rhonchi, wheezing - Cardiovascular Rhythm: regular Heart Sounds: Present: S1 & S2 - Extremities Extremities: no ischemia, No edema Peripheral Pulses: within normal limits - Abdominal General gastrointestinal: soft, non-tender, non-distended, normal bowel sounds - Integumentary Integumentary: Present: clear, warm - Psychiatric Psychiatric: appropriate mood/affect, cooperative - Neurologic Neurologic: CNII-XII intact, moves all extremities Results - Labs CBC & Chem 7: 11/10/18 06:14 11/08/18 22:53 Labs: Laboratory Last Values WBC 14.1 K/mm3 (4.5-11.0) H 11/08/18 22:53 RBC 4.21 M/mm3 (3.65-5.03) 11/08/18 22:53 Hgb 12.5 gm/dl (11.8-15.2) 11/08/18 22:53 Hct 36.5 % (35.5-45.6) 11/08/18 22:53 MCV 87 fl (84-94) 11/08/18 22:53 MCH 30 pg (28-32) 11/08/18 22:53 MCHC 34 % (32-34) 11/08/18 22:53 RDW 15.0 % (13.2-15.2) 11/08/18 22:53 Plt Count 231 K/mm3 (140-440) 11/08/18 22:53 Lymph % (Auto) 5.6 % (13.4-35.0) L 11/08/18 22:53 [place] % (Auto) 5.7 % (0.0-7.3) 11/08/18 22:53 Eos % (Auto) 0.9 % (0.0-4.3) 11/08/18 22:53 Baso % (Auto) 0.7 % (0.0-1.8) 11/08/18 22:53 Lymph # 0.8 K/mm3 (1.2-5.4) L 11/08/18 22:53 [place] # 0.8 K/mm3 (0.0-0.8) 11/08/18 22:53 Eos # 0.1 K/mm3 (0.0-0.4) 11/08/18 22:53 Baso # 0.1 K/mm3 (0.0-0.1) 11/08/18 22:53 Seg Neutrophils % 87.1 % (40.0-70.0) H 11/08/18 22:53 Seg Neutrophils # 12.3 K/mm3 (1.8-7.7) H 11/08/18 22:53 PT 13.5 Sec. (12.2-14.9) 11/08/18 22:53 INR 0.76 (0.87-1.13) L 11/08/18 22:53 APTT 29.0 Sec. (24.2-36.6) 11/08/18 22:53 15.9 Sec. (15.1-19.6) 11/08/18 22:53 Sodium 135 mmol/L (137-145) L 11/08/18 22:53 Potassium 4.5 mmol/L (3.6-5.0) 11/08/18 22:53 Chloride 95.7 mmol/L (98-107) L 11/08/18 22:53 Carbon Dioxide 19 mmol/L (22-30) L 11/08/18 22:53 25 mmol/L 11/08/18 22:53 BUN 29 mg/dL (9-20) H 11/08/18 22:53 2.4 mg/dL (0.8-1.5) H 11/08/18 22:53 Estimated GFR 26 ml/min 11/08/18 22:53 12 % 11/08/18 22:53 Glucose 202 mg/dL (75-100) H 11/08/18 22:53 POC Glucose 182 (70-105) H 11/09/18 08:48 Calcium 9.1 mg/dL (8.4-10.2) 11/08/18 22:53 0.015 ng/mL (0.00-0.029) 11/08/18 22:53 Straw (Yellow) 11/09/18 05:13 Clear (Clear) 11/09/18 05:13 6.0 (5.0-7.0) 11/09/18 05:13 Ur Specific [place] 1.014 (1.003-1.030) 11/09/18 05:13 30 mg/dl mg/dL (Negative) 11/09/18 05:13 150 mg/dL (Negative) 11/09/18 05:13 Neg mg/dL (Negative) 11/09/18 05:13 Mod (Negative) 11/09/18 05:13 Neg (Negative) 11/09/18 05:13 Neg (Negative) 11/09/18 05:13 < 2.0 mg/dL (<2.0) 11/09/18 05:13 Ur Leukocyte Esterase Neg (Negative) 11/09/18 05:13 < 1.0 /HPF (0.0-6.0) 11/09/18 05:13 2.0 /HPF (0.0-6.0) 11/09/18 05:13 U Epithel Cells (Auto) < 1.0 /HPF (0-13.0) 11/09/18 05:13 Hyaline Casts 1 /LPF 11/09/18 05:13 Active Medications - Current Medications Current Medications: Generic Name Dose Route Start Last Admin Trade Name Freq PRN Reason Stop Dose Admin Atorvastatin Calcium 40 mg 11/09/18 22:00 Lipitor PO QHS [facility] Dextrose 50 ml 11/09/18 01:19 D50w (25gm) Syringe IV PRN PRN Hypoglycemia Levetiracetam 500 mg/ Dextrose 105 mls @ 400 mls/hr 11/09/18 10:00 IV Q12HR [facility] Sodium Chloride 1,000 mls @ 100 mls/hr 11/09/18 02:00 11/09/18 07:08 Nacl 0.9% 1000 Ml IV 100 mls/hr DIRECT [facility] Administration Insulin Glargine 10 units 11/09/18 22:00 Lantus SUB-Q QHS [facility] Insulin Human Lispro 0 unit 11/09/18 07:30 11/09/18 09:04 Humalog SUB-Q Not Given ACHS [facility] Protocol Sodium Chloride 10 ml 11/09/18 01:12 Sodium Chloride Flush Syringe 10 Ml IV PRN PRN LINE FLUSH
[2018-11-09] MEDS: KEPPRA 500 MG in D5W 100 ML IV SCH ×2 (13:10→22:01)
[2018-11-09] MEDS: TRIMOX PO SCH ×2 (15:33→22:01)
--- NOTE | 2018-11-09 16:52 | Vascular Lab Report ---
PROCEDURE: VL CAROTID DUPLEX BILAT HISTORY: stroke FINDINGS: Real-time ultrasound of the cervical arterial vasculature was performed using grayscale and color Doppler images. These images demonstrate that peak systolic velocity in the common carotid artery was 84 cm/s. In the internal carotid it was 67 cm/s and in the external carotid 86 cm/s. Flow in the vertebral artery wa s antegrade at 51 cm/s. The ratio of flow of the internal carotid to the common carotid was 0.80 whic h is within normal limits. On the left, peak systolic velocity in the common carotid artery was 70 cm/s. In the internal carotid it was 51 cm/s and in the external carotid 85 cm/s. Flow in the vertebral artery was antegrade at 25 cm/s. The ratio of flow of the internal carotid to the common carotid was 0.73 which is within normal limit s. IMPRESSION: No stenosis of greater than 50 percent is seen in the cervical arterial vasculature This document is electronically signed by Nic Wright MD., Nov 09 2018 04:50:34 PM ET
[2018-11-09] MEDS ORDERED: LANTUS SUB-Q SCH (22:00)
[2018-11-10 07:17] LABS: Basophils % (Auto) 0.5 % (0.0-1.8); Eosinophils # (Auto) 0.2 K/mm3 (0.0-0.4); Eosinophils % (Auto) 2.4 % (0.0-4.3); Hematocrit 37.2 % (35.5-45.6); Hemoglobin 12.8 gm/dl (11.8-15.2); Lymphocytes % (Auto) 14.3 % (13.4-35.0); Mean Corpuscular HGB Conc 34 % (32-34); Mean Corpuscular Volume 86 fl (84-94); Monocytes # (Auto) 0.5 K/mm3 (0.0-0.8); Monocytes % (Auto) 7.8 % (0.0-7.3); Platelet Count 208 K/mm3 (140-440); Red Blood Count 4.31 M/mm3 (3.65-5.03); Red Cell Distribution Width 15.4 % (13.2-15.2)
[2018-11-10 07:31] LABS: Chol/HDL Ratio 2.73 %
[2018-11-10] MEDS: HumaLOG SUB-Q SCH ×2 (10:02→12:56)
--- NOTE | 2018-11-10 10:25 | Magnetic Resonance Report ---
MRI BRAIN WITHOUT CONTRAST: 11/10/18 CLINICAL: Stroke. COMPARISON: CT head 11/08/18 and CTA head 11/09/18 TECHNIQUE: Axial diffusion, T1, T2, gradient echo T2*, coronal and axial FLAIR and sagittal T1 sequences on a 1.5 Brandy magnet. FINDINGS: The frontal and temporal lobe sulci are large relative to the rest of the brain and the ventricles are disproportionately large compared to the sulci. No restricted diffusion. A chronic left occipital infarct with encephalomalacia, gliosis and hemosiderin deposition. Moderate multifocal periventricular and subcortical white matter hyperintensities FLAIR and T2 in the right cerebral hemisphere. The left hemisphere is relatively spared. No mass or mass effect. No hemorrhage, edema or extra-axial collection. Normal pituitary and optic chiasm. The brainstem and cerebellum are normal. The left MCA flow void is smaller than the right. The rest of the vascular flow voids are intact. Left ethmoid and left maxillary sinusitis with partial opacification of the sinuses. The rest of the sinuses are clear. The orbits, and soft tissues are normal. Normal calvarium and skull base. IMPRESSION: 1. No evidence of acute/subacute infarct or hemorrhage. 2. A chronic left occipital lobe infarct. 3. Frontotemporal cortical atrophy. 4. Mild communicating hydrocephalus with disproportionate enlargement of the ventricles compared to the sulci. 5. Moderate right cerebral chronic white matter microangiopathy and minimal left cerebral white matter changes. 6. Sinusitis. 7. High-grade left MCA stenosis.
[2018-11-10] MEDS: KEPPRA 500 MG in D5W 100 ML IV SCH (11:05)
[2018-11-10] MEDS: TRIMOX PO SCH (11:05)
[2018-11-10 12:14] VITALS: BP 162/78
--- NOTE | 2018-11-10 12:48 | Progress Note ---
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 minimal left physical white matter changes and sinusitis High-grade left MCA stenosis CTA head; high-grade stenosis of the left OR segment, no thrombus or occlusion CTA neck; less than 50% stenosis carotids, no evidence of arterial stenosis or arterial dissection vertebral Acute metabolic encephalopathy -Probably postictal state -Head CT scan negative -Further evaluation with MRI brain pending Acute on CKD stage III -On IV fluid, will monitor creatinine level Metabolic acidosis -Likely secondary to the Renal failure -On IV fluid, will monitor bicarbonate level Hypertension -Stable DM2 with hyperglycemia -On SSI and Lantus Leukocytosis -Probably reactive, will monitor -Urinalysis pending DVT prophylaxis with SCD Disposition: For discharge when medically stable Time spent: 38 minutes Hospitalist Physical - Constitutional Vitals: Temp Pulse Resp BP Pulse Ox 98.3 F 82 18 162/78 97 11/10/18 12:12 11/10/18 12:12 11/10/18 12:12 11/10/18 12:12 11/10/18 12:12 General appearance: Present: no acute distress, well-nourished Results - Labs CBC & Chem 7: 11/10/18 06:14 11/08/18 22:53 Labs: Laboratory Last Values WBC 7.0 K/mm3 (4.5-11.0) 11/10/18 06:14 RBC 4.31 M/mm3 (3.65-5.03) 11/10/18 06:14 Hgb 12.8 gm/dl (11.8-15.2) 11/10/18 06:14 Hct 37.2 % (35.5-45.6) 11/10/18 06:14 MCV 86 fl (84-94) 11/10/18 06:14 MCH 30 pg (28-32) 11/10/18 06:14 MCHC 34 % (32-34) 11/10/18 06:14 RDW 15.4 % (13.2-15.2) H 11/10/18 06:14 Plt Count 208 K/mm3 (140-440) 11/10/18 06:14 Lymph % (Auto) 14.3 % (13.4-35.0) 11/10/18 06:14 [place] % (Auto) 7.8 % (0.0-7.3) H 11/10/18 06:14 Eos % (Auto) 2.4 % (0.0-4.3) 11/10/18 06:14 Baso % (Auto) 0.5 % (0.0-1.8) 11/10/18 06:14 Lymph # 1.0 K/mm3 (1.2-5.4) L 11/10/18 06:14 [place] # 0.5 K/mm3 (0.0-0.8) 11/10/18 06:14 Eos # 0.2 K/mm3 (0.0-0.4) 11/10/18 06:14 Baso # 0.0 K/mm3 (0.0-0.1) 11/10/18 06:14 Seg Neutrophils % 75.0 % (40.0-70.0) H 11/10/18 06:14 Seg Neutrophils # 5.2 K/mm3 (1.8-7.7) 11/10/18 06:14 PT 13.5 Sec. (12.2-14.9) 11/08/18 22:53 INR 0.76 (0.87-1.13) L 11/08/18 22:53 APTT 29.0 Sec. (24.2-36.6) 11/08/18 22:53 15.9 Sec. (15.1-19.6) 11/08/18 22:53 Sodium 135 mmol/L (137-145) L 11/08/18 22:53 Potassium 4.5 mmol/L (3.6-5.0) 11/08/18 22:53 Chloride 95.7 mmol/L (98-107) L 11/08/18 22:53 Carbon Dioxide 19 mmol/L (22-30) L 11/08/18 22:53 25 mmol/L 11/08/18 22:53 BUN 29 mg/dL (9-20) H 11/08/18 22:53 2.4 mg/dL (0.8-1.5) H 11/08/18 22:53 Estimated GFR 26 ml/min 11/08/18 22:53 12 % 11/08/18 22:53 Glucose 202 mg/dL (75-100) H 11/08/18 22:53 POC Glucose 207 (70-105) H 11/09/18 21:25 7.5 % (4-6) H 11/10/18 06:14 Calcium 9.1 mg/dL (8.4-10.2) 11/08/18 22:53 0.015 ng/mL (0.00-0.029) 11/08/18 22:53 Triglycerides 167 mg/dL (2-149) H 11/10/18 06:14 Cholesterol 145 mg/dL (50-199) 11/10/18 06:14 77 mg/dL (50-130) 11/10/18 06:14 53 mg/dL (40-59) 11/10/18 06:14 2.73 % 11/10/18 06:14 Straw (Yellow) 11/09/18 05:13 Clear (Clear) 11/09/18 05:13 6.0 (5.0-7.0) 11/09/18 05:13 Ur Specific [place] 1.014 (1.003-1.030) 11/09/18 05:13 30 mg/dl mg/dL (Negative) 11/09/18 05:13 150 mg/dL (Negative) 11/09/18 05:13 Neg mg/dL (Negative) 11/09/18 05:13 Mod (Negative) 11/09/18 05:13 Neg (Negative) 11/09/18 05:13 Neg (Negative) 11/09/18 05:13 < 2.0 mg/dL (<2.0) 11/09/18 05:13 Ur Leukocyte Esterase Neg (Negative) 11/09/18 05:13 < 1.0 /HPF (0.0-6.0) 11/09/18 05:13 2.0 /HPF (0.0-6.0) 11/09/18 05:13 U Epithel Cells (Auto) < 1.0 /HPF (0-13.0) 11/09/18 05:13 Hyaline Casts 1 /LPF 11/09/18 05:13 Active Medications - Current Medications Current Medications: Generic Name Dose Route Start Last Admin Trade Name Freq PRN Reason Stop Dose Admin Amoxicillin 500 mg 11/09/18 14:00 11/10/18 11:05 Trimox PO 500 mg Q12HR BRAYDEN Administration Atorvastatin Calcium 40 mg 11/09/18 22:00 11/09/18 22:01 Lipitor PO 40 mg QHS BRAYDEN Administration Dextrose 50 ml 11/09/18 01:19 D50w (25gm) Syringe IV PRN PRN Hypoglycemia Levetiracetam 500 mg/ Dextrose 105 mls @ 400 mls/hr 11/09/18 10:00 11/10/18 11:05 IV 400 mls/hr Q12HR BRAYDEN Administration Sodium Chloride 1,000 mls @ 100 mls/hr 11/09/18 02:00 11/09/18 23:20 Nacl 0.9% 1000 Ml IV 100 mls/hr DIRECT BRAYDEN Administration Insulin Glargine 10 units 11/09/18 22:00 11/09/18 22:00 Lantus SUB-Q 10 units QHS BRAYDEN Administration Insulin Human Lispro 0 unit 11/09/18 07:30 11/10/18 10:02 Humalog SUB-Q Not Given ACHS [facility] Protocol Sodium Chloride 10 ml 11/09/18 01:12 11/10/18 11:05 Sodium Chloride Flush Syringe 10 Ml IV 10 ml PRN PRN Administration LINE FLUSH
[2018-11-10] MEDS: NACL 0.9% 1000 ML 1,000 ML IV SCH (12:56)
--- NOTE | 2018-11-10 13:18 | Progress Note ---
Subjective Date of service: 11/10/18 Interval history: etiology of episode is seizure he may go home on keppra therapy neuro exam is normal at this time released for discharge follow up in my office Objective - Vital Sign Vital Signs - 12hr 11/10/18 11/10/18 06:00 12:12 Temperature 98.3 F Pulse Rate 89 82 Respiratory 18 Rate Blood Pressure 162/78 O2 Sat by Pulse 97 Oximetry - Laboratory Findings CBC and BMP: 11/10/18 06:14 11/08/18 22:53 Abnormal Lab Findings: Abnormal Labs 11/08/18 11/08/18 11/08/18 22:52 22:53 22:53 WBC 14.1 H RDW Lymph % (Auto) 5.6 L [place] % (Auto) Lymph # 0.8 L Seg Neutrophils % 87.1 H Seg Neutrophils # 12.3 H INR 0.76 L Sodium Chloride Carbon Dioxide BUN Creatinine Glucose POC Glucose 193 H Hemoglobin A1c Triglycerides 11/08/18 11/09/18 11/09/18 22:53 05:49 08:48 WBC RDW Lymph % (Auto) [place] % (Auto) Lymph # Seg Neutrophils % Seg Neutrophils # INR Sodium 135 L Chloride 95.7 L Carbon Dioxide 19 L BUN 29 H Creatinine 2.4 H Glucose 202 H POC Glucose 158 H 182 H Hemoglobin A1c Triglycerides 11/09/18 11/09/18 11/09/18 12:11 17:36 18:09 WBC RDW Lymph % (Auto) [place] % (Auto) Lymph # Seg Neutrophils % Seg Neutrophils # INR Sodium Chloride Carbon Dioxide BUN Creatinine Glucose POC Glucose 251 H 158 H 149 H Hemoglobin A1c Triglycerides 11/09/18 11/10/18 11/10/18 21:25 06:14 06:14 WBC RDW Lymph % (Auto) [place] % (Auto) Lymph # Seg Neutrophils % Seg Neutrophils # INR Sodium Chloride Carbon Dioxide BUN Creatinine Glucose POC Glucose 207 H Hemoglobin A1c 7.5 H Triglycerides 167 H 11/10/18 06:14 WBC RDW 15.4 H Lymph % (Auto) [place] % (Auto) 7.8 H Lymph # 1.0 L Seg Neutrophils % 75.0 H Seg Neutrophils # INR Sodium Chloride Carbon Dioxide BUN Creatinine Glucose POC Glucose Hemoglobin A1c Triglycerides
--- NOTE | 2018-11-10 15:02 | Discharge Summary ---
Providers - Providers Date of Admission: 11/09/18 03:49 Date of discharge: 11/10/18 Attending physician: ZOE WASHBURN 11/09/18 01:12 Occupational Therapy Evaluate and Treat [CONS] Routine Comment: Reason For Exam: Neuro deficits Physical Therapy Evaluation and Treat [CONS] Routine Comment: Reason For Exam: Neuro deficits 11/10/18 12:52 Consult to Physician [CONS] Routine Comment: Consulting Provider: ANSON DOLAN Physician Instructions: Reason For Exam: new onset seizures/CVA symptoms Primary care physician: RUBEN GUZMÁN Hospitalization Reason for admission: Seizure like activity/stroke like symptoms Condition: Stable Pertinent studies: Workup : CT head :no acute intracranial abnormality, left ethmoidal sinusitis MRI brain: no acute or subacute hemorrhage Chronic left occipital infarct Frontotemporal cortical atrophy 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 Upon arrival to the ED, patient is nonverbal and no seizure activity was observed. Stroke protocol was initiated in the ED and had extensive neuro workup.Evaluated by tele neurologist who advised antiplatelets in view of high grade MCA stenosis. CVA workup negative.Possible TIA. aspirin and statin Seizure precautions,mnaged with antiepileptic meds,advised not to drive. Today patient is comfortable,no new complaints,vitals stable. Physical exam unremarkable Stable at discharge Discharge diagnosis and management: New onset seizure -We'll discharge on oral Keppra, seizure precautions -Neurology evaluated,no driving Possible stroke; not a candidate for TPA -On stroke protocol , Teleneurologist recommended aspirin [antiplatelets in view of high grade stenosis of MCA] -Stroke workup negative.Acute stroke ruled out. Possible TIA : aspirin and statin rec by tele neurologist Acute metabolic encephalopathy -Probably postictal state -Head CT scan negative -Further evaluation with MRI brain pending Acute on CKD stage III -On IV fluid, will monitor creatinine level Metabolic acidosis -Likely secondary to the Renal failure -On IV fluid, will monitor bicarbonate level Hypertension -Stable DM2 with hyperglycemia -On SSI and Lantus Leukocytosis -Probably reactive, will monitor -Urinalysis pending DVT prophylaxis with SCD Disposition: discharge today F/U with PMD and Neurology per schedule Disposition: DC-01 TO HOME OR SELFCARE Time spent for discharge: 32 min Core Measure Documentation - Palliative Care Palliative Care/ Comfort Measures: Not Applicable - Core Measures Any of the following diagnoses?: history only Exam - Constitutional Vitals: Temp Pulse Resp BP Pulse Ox 98.3 F 82 18 162/78 97 11/10/18 12:12 11/10/18 12:12 11/10/18 12:12 11/10/18 12:12 11/10/18 12:12 General appearance: Present: no acute distress, well-nourished - EENT Eyes: Present: PERRL, EOM intact - Neck Neck: Present: supple, normal ROM - Respiratory Respiratory effort: normal Respiratory: negative: rales, rhonchi, wheezing - Cardiovascular Rhythm: regular Heart Sounds: Present: S1 & S2 - Extremities Extremities: no ischemia, No edema - Abdominal General gastrointestinal: Present: soft, non-tender, non-distended, normal bowel sounds - Integumentary Integumentary: Present: clear, warm - Musculoskeletal Musculoskeletal: strength equal bilaterally - Psychiatric Psychiatric: appropriate mood/affect, cooperative - Neurologic Neurologic: CNII-XII intact, moves all extremities Plan Activity: advance as tolerated, no driving until cleared by PCP, fall precautions, other (seizure precautions) Diet: diabetic Additional Instructions: do not drive. Seizure precautions Follow up with: EUGENIE CHENG MD [Referring] - 3-5 Days ANSON DOLAN MD [Staff Physician] - 7 Days Prescriptions: Aspirin EC 81 mg PO QDAY #30 tablet. glipiZIDE [Glucotrol] 2.5 mg PO BIDDIAB #30 tablet levETIRAcetam [Keppra TAB] 500 mg PO BID #60 tablet AtorvaSTATin [Lipitor] 40 mg PO QHS #30 tablet Amoxicillin [Trimox CAP] 500 mg PO Q12HR #10 capsule
[2018-11-10] MEDS ORDERED: GLUCOTROL PO SCH (17:00)
== END 2018-11-10 17:30 | disposition home or self-care (01) | DRG 101 ==
LOC: ED 22:32 → 2B-ACE 11-09 03:49 → 4A 11-09 06:45
PROVIDERS: ADMIT Internal Medicine; ATTEND Internal Medicine
DX: R56.9 Unspecified convulsions (principal); I69.354 Hemiplegia and hemiparesis following cerebral infarction affecting left non-dominant side; E87.2 Acidosis; G91.9 Hydrocephalus, unspecified; N17.9 Acute kidney failure, unspecified; N18.3 Chronic kidney disease, stage 3 (moderate); E11.65 Type 2 diabetes mellitus with hyperglycemia; E11.22 Type 2 diabetes mellitus with diabetic chronic kidney disease; I12.9 Hypertensive chronic kidney disease with stage 1 through stage 4 chronic kidney disease, or unspecified chronic kidney disease; E55.9 Vitamin D deficiency, unspecified; D72.829 Elevated white blood cell count, unspecified; J32.2 Chronic ethmoidal sinusitis; G31.01 Pick's disease; F02.80 Dementia in other diseases classified elsewhere, unspecified severity, without behavioral disturbance, psychotic disturbance, mood disturbance, and anxiety; I65.22 Occlusion and stenosis of left carotid artery
CPT/HCPCS: 36415; 70450; 70496; 70498; 70551; 80048; 80061; 81001; 82962; 83036; 84484; 85025; 85610; 85670; 85730; 87086; 93005; 93010; 93306; 93880; G0378; A9270-GY; J1815; J1953; J7030; Q9967

== ENCOUNTER 2020-07-26 16:41 | Emergency (ER) | payer MEDICARE ==
--- NOTE | 2020-07-26 17:19 | Emergency Department Report ---
Blank Doc - Documentation Documentation: 79-year-old male that was brought to ED by grandson for >500 finger stick today. 1- This initial assessment/diagnostic orders/clinical plan/ treatment(s) is/are subject to change based on pt's health status, clinical progression and re- assessment by fellow clinical providers in the ED. Further treatment and workup at subsequent clinical provers discretion. Patient/guardians urged not to elope from ED as their condition may be serious if not clinically assessed and managed. 2-labs 3-UA
[2020-07-26 17:32] LABS: Basophils # (Auto) 0.1 K/mm3 (0.0-0.1); Basophils % (Auto) 0.8 % (0.0-1.8); Eosinophils # (Auto) 0.2 K/mm3 (0.0-0.4); Eosinophils % (Auto) 2.9 % (0.0-4.3); Hematocrit 40.5 % (35.5-45.6); Lymphocytes # (Auto) 1.3 K/mm3 (1.2-5.4); Lymphocytes % (Auto) 20.6 % (13.4-35.0); Mean Corpuscular HGB Conc 35 % (32-34); Mean Corpuscular Volume 88 fl (84-94); Monocytes # (Auto) 0.5 K/mm3 (0.0-0.8); Monocytes % (Auto) 7.9 % (0.0-7.3); Platelet Count 229 K/mm3 (140-440); Red Blood Count 4.61 M/mm3 (3.65-5.03)
[2020-07-26] MEDS ORDERED: INSULIN REGULAR, HUMAN 100 UNITS/1 ML IV ONE (20:56)
[2020-07-26] MEDS ORDERED: SODIUM CHLORIDE 0.9% 1000 ML 1,000 ML IV ONE (20:56)
--- NOTE | 2020-07-26 20:58 | Emergency Department Report ---
ED General Adult HPI - General Chief complaint: Hyperglycemia Stated complaint: BLOOD SUGAR HIGH PUI?: No Time Seen by Provider: 07/26/20 20:37 Source: patient, parimutuel clerk Mode of arrival: Ambulatory Limitations: Altered Mental Status - History of Present Illness Initial comments: Patient is a 79-year-old male who presents emergency room with elevated blood sugar. Patient is confused. History is per the patient's grandson. Grandson said states the patient is at baseline. Patient is currently alert and oriented x2. Patient is disoriented to time and situation. Patient is oriented to person and place. Grandson states the patient is not having increased thirst or urination. Grandson states the patient is taking all of his medications. For diabetes, the patient is currently on insulin and oral medications. Patient denies any pain. Grandson states the patient has not complained of being in any pain. Grandson states that the patient has been seeing high readings for the past few days and the family was concerned so the told him to bring the patient to the emergency room to be evaluated. Patient's medical record reviewed. Patient's med list reviewed. Patient has a past medical history of hypertension, hyperlipidemia, diabetes, insulin- dependent diabetes, BPH, CKD not on dialysis, CVA - hemorrhagic stroke (2019), vitamin D deficiency, seizures -: Sudden Severity scale (0 -10): 0 Consistency: constant Improves with: movement Worsens with: eating Associated Symptoms: denies other symptoms Treatments Prior to Arrival: none - Related Data Previous Rx's Medication Instructions Recorded Last Taken Type predniSONE [Deltasone] 3 tab PO QDAY #15 tablet 12/03/16 Unknown Rx Amoxicillin [Trimox CAP] 500 mg PO Q12HR #10 capsule 11/10/18 Unknown Rx AtorvaSTATin [Lipitor] 40 mg PO QHS #30 tablet 11/10/18 Unknown Rx glipiZIDE [Glucotrol] 2.5 mg PO BIDDIAB #30 tablet 11/10/18 Unknown Rx levETIRAcetam [Keppra TAB] 500 mg PO BID #60 tablet 11/10/18 Unknown Rx Aspirin [Aspirin BABY CHEW TAB] 81 mg PO QDAY #30 tab.chew 11/20/18 Unknown Rx Allergies Allergy/AdvReac Type Severity Reaction Status Date / Time No Known Allergies Allergy Unverified 12/03/16 19:24 ED Review of Systems ROS: Stated complaint: BLOOD SUGAR HIGH Other details as noted in HPI Comment: Unobtainable due to pts medical conditions ED Past Medical Hx - Past Medical History Previous Medical History?: Yes Hx Hypertension: Yes Hx CVA: Yes (hemmorhagic stroke in June 2018) Hx Diabetes: Yes Hx Renal Disease: Yes (CKD, not on dialysis) Hx Seizures: Yes Hx Dementia: Yes Additional medical history: Hyperkalemia, vitamin D deficiency - Surgical History Past Surgical History?: No - Family History Family history: no significant - Social History Smoking Status: Never Smoker Substance Use Type: None - Medications Home Medications: Home Medications Medication Instructions Recorded Confirmed Last Taken Type predniSONE [Deltasone] 3 tab PO QDAY #15 tablet 12/03/16 Unknown Rx Amoxicillin [Trimox CAP] 500 mg PO Q12HR #10 capsule 11/10/18 Unknown Rx AtorvaSTATin [Lipitor] 40 mg PO QHS #30 tablet 11/10/18 Unknown Rx glipiZIDE [Glucotrol] 2.5 mg PO BIDDIAB #30 tablet 11/10/18 Unknown Rx levETIRAcetam [Keppra TAB] 500 mg PO BID #60 tablet 11/10/18 Unknown Rx Aspirin [Aspirin BABY CHEW TAB] 81 mg PO QDAY #30 tab.chew 11/20/18 Unknown Rx ED Physical Exam - General Limitations: Altered Mental Status General appearance: alert, in no apparent distress - Head Head exam: Present: atraumatic, normocephalic - Eye Eye exam: Present: normal appearance - ENT ENT exam: Present: mucous membranes moist - Neck Neck exam: Present: normal inspection - Respiratory Respiratory exam: Present: normal lung sounds bilaterally. Absent: respiratory distress - Cardiovascular Cardiovascular Exam: Present: regular rate, normal rhythm. Absent: systolic murmur, diastolic murmur, rubs, gallop - GI/Abdominal GI/Abdominal exam: Present: soft, normal bowel sounds - Rectal Rectal exam: Present: deferred - Extremities Exam Extremities exam: Present: normal inspection - Back Exam Back exam: Present: normal inspection - Neurological Exam Neurological exam: Present: alert, altered (Patient is alert and oriented x2. Patient is oriented to person and place. Patient is disoriented to situation and time.) - Psychiatric Psychiatric exam: Present: normal affect, normal mood - Skin Skin exam: Present: warm, dry, intact, normal color. Absent: rash ED Course Vital Signs 07/26/20 07/26/20 17:17 20:23 Temperature 97.4 F L 98.3 F Pulse Rate 74 78 Respiratory 18 18 Rate Blood Pressure 126/66 Blood Pressure 168/56 [Right] O2 Sat by Pulse 97 100 Oximetry - Reevaluation(s) Reevaluation #1: I discussed lab results with patient and grandson. Patient will receive insulin and fluids. Patient and grandson agree with plan of care. 07/26/20 20:54 Reevaluation #2: Patient's follow-up blood sugar after insulin and fluids was 144. Patient states he is feeling good. I discussed all results and clinical findings with patient and grandson. I discussed plan of care with patient and grandson. Patient and grandson agrees with plan of care. Patient is stable for discharge. Patient will be discharged home. Patient and grandson given discharge instructions. Patient and grandson voiced understanding of discharge instructions. 07/26/20 22:35 ED Medical Decision Making - Lab Data Result diagrams: 07/26/20 17:19 07/26/20 17:19 - Medical Decision Making Patient is an 79-year-old male that presents emergency room for hyperglycemia. Patient had no complaints and denied pain. I discussed the case with the patient's grandson and grandson agrees the patient does not have any other complaints except for is had elevated sugar for a few days. Patient's labs were done and was consistent with hyperglycemia. No signs of DKA. Patient had pseudohyponatremia. Patient given fluids and insulin. Patient's blood sugar responded well. Patient's initial blood sugar was greater than 500 and after treatment, the patient's blood sugar reduced to 144. Patient is stable for discharge. Patient be discharged home. Patient to be managed as an outpatient. Patient given discharge instructions. - Differential Diagnosis Elevated blood sugar, diabetes, DKA, dehydration, hyperglycemia Critical care attestation.: If time is entered above; I have spent that time in minutes in the direct care of this critically ill patient, excluding procedure time. ED Disposition Clinical Impression: Hyperglycemia due to type 2 diabetes mellitus Qualifiers: Diabetes mellitus rn long term care insulin use: with rn long term care use Qualified Code(s): E11.65 - Type 2 diabetes mellitus with hyperglycemia Chronic kidney disease (CKD) Qualifiers: Chronic kidney disease stage: unspecified stage Qualified Code(s): N18.9 - Chronic kidney disease, unspecified Disposition: DC-01 TO HOME OR SELFCARE Is pt being admited?: No Does the pt Need Aspirin: No Condition: Stable Instructions: Hyperglycemia, Hyperglycemia, [id number], Type 2 Diabetes Mellitus, Self Care, Adult, [id number], Chronic Kidney Disease, Adult, [id number], Diabetes Mellitus Type 2 in Adults (ED) Additional Instructions: Patient to follow-up with primary care in 2 to 3 days. Patient to follow-up with wood polisher and race steward in 2 to 3 days. Patient to rest. Patient to increase water. Patient need a low-salt, heart healthy, diabetic diet. Patient to monitor blood sugar and keep a blood sugar log. Patient to take blood sugar log to all follow-up appointments.. Patient to continue medicatio ns.. Patient to return to the ER if condition worsens, changes or new symptoms arise. Referrals: PRIMARY CARE [Primary Care Provider] - 2-3 Days Time of Disposition: 22:42
[2020-07-26 23:18] VITALS: BP 145/76
== END 2020-07-26 23:18 | disposition home or self-care (01) ==
LOC: ED 16:41
DX: E11.65 Type 2 diabetes mellitus with hyperglycemia (principal); E11.22 Type 2 diabetes mellitus with diabetic chronic kidney disease; I12.9 Hypertensive chronic kidney disease with stage 1 through stage 4 chronic kidney disease, or unspecified chronic kidney disease; N18.9 Chronic kidney disease, unspecified; R56.9 Unspecified convulsions; F03.90 Unspecified dementia, unspecified severity, without behavioral disturbance, psychotic disturbance, mood disturbance, and anxiety; Z86.73 Personal history of transient ischemic attack (TIA), and cerebral infarction without residual deficits; Z79.2 Long term (current) use of antibiotics; Z79.899 Other long term (current) drug therapy
CPT/HCPCS: 36415; 80053; 82805; 82962; 85025; 96361; 96374; 99283; J7030; J1815